=== PATIENT | female | born 1980 ===

== ENCOUNTER 2017-05-31 17:11 | Emergency (ER) | payer MEDICAID ==
[2017-05-31 18:28] LABS: SQUAMOUS EPITHIAL < 1 /hpf (0-5); URINE BACTERIA RARE (<OCC); URINE BILIRUBIN NEGATIVE (NEGATIVE); URINE BLOOD NEGATIVE (NEGATIVE); URINE CLARITY Clear (Clear); URINE COLOR Straw (YELLOW); URINE GLUCOSE (UA) NORMAL (Normal); URINE LEUKOCYTE ESTERASE NEG Leu/uL (Negative); URINE NITRATE NEGATIVE (NEGATIVE); URINE PROTEIN NEGATIVE (NEGATIVE); URINE UROBILINOGEN NORMAL mg/dL (0.2-1.0)
[2017-05-31 23:06] VITALS: BP 111/59; PULSE 82; RESP 20; TEMP 97
== END 2017-05-31 19:03 | disposition home or self-care (01) ==
LOC: C.EROB 17:11
DX: O26.893 Other specified pregnancy related conditions, third trimester (principal); Z3A.36 36 weeks gestation of pregnancy; R10.30 Lower abdominal pain, unspecified; M54.5 Low back pain

== ENCOUNTER 2017-06-05 23:27 | Inpatient (IN) | payer MEDICAID, OTHER ==
[2017-06-06] MEDS ORDERED: Lactated Ringer's 1,000 ML IV SCH
--- NOTE | 2017-06-06 00:37 | OBHP ---
Datetime: 06/05/2017 23:45 IP Adm Impression: Term, intrauterine IP Admit Plan: Admit to unit; Initiate labor protocol Admit Comment, IP Provider: Patient is a 36 year old at 37w 2d EDGAR 06/24/17 by 10w1d US prese nts to L+D for leakage of fluid that started at approximately 11pm. Patient states that she was leaki ng a moderate amount of clear fluid mixed with blood. Also states having occasional back pain. Endors es +FM, denies CTX, VB. Issues: Advanced Maternal Age - declined amnio OB Hx: 1. 2008 at 38 weeks, 5lbs 6oz, no complications 2. 2010 SAB at 12 weeks, D+C 3. Current ENGINE REPAIRER Hx: LMP unsure [facility] - 14/regular/3-4 days Denies hx of fibroids, ovarian cysts, STIs Denies hx of abnormal pap smears Allergies: NKDA Medications: PNV Medical Hx: Denies Surgical Hx: Kidney donor, D+C Social Hx: Denies alcohol, tobacco, drug use; lives with and son Family Hx: Father - CKD, cardiomyopathy; Mother - healthy PE: See above A/P: 36 year old at 37w2d presents with PROM -Will admit to unit -Category I tracing -CEFM and TOCO -Admission labs: CBC, CMP, TS, RPR, UA -Lactated Ringers 125cc/hr -GBS negative, no abx needed at this time -Anesthesia on consult prn -Anticipate vaginal delivery -Plan discussed with Dr Jg Seay DO PGY-1 Attending Note: patient seen with Resident. I agree with the above . FHR - Baseline A Provider: 135 Contraction Comments Provider: irregular Comments, ACOG Physical Exam: VSS Gen: AAOx3 Abd: Soft, gravid Ext: No clubbing, cyanosis, edema SSE: +pooling, +nitrazine SVE: 3/70/-2 IP Hx Assessment: The History has been Reviewed and is Current EGA AdmitDate IP: 37.3 Vital Signs Provider: Reviewed; Within Normal Limits IP Chief Complaint: Suspected ruptured membranes NICHD Variability Prov Fetus A: Moderate 6-25bpm NICHD Accel Fetus A IP Provider: [id number] FHR Category Provider Fetus A: Category I NICHD Decel Fetus A IP Provider: None Dilatation, Provider: 3 Effacement, Provider: 70 Station, Provider: -2
[2017-06-06 01:01] LABS: BASO # 0.1 K/uL (0.0-0.2); BASO % 0.8 % (0.0-2.0); EOS # 0.2 K/uL (0.0-0.7); EOS % 1.9 % (0.0-4.0); HEMOGLOBIN 13.7 g/dL (11.0-16.0); LYMPH # 3.2 K/uL (1.0-4.3); LYMPH % 31.6 % (20.0-40.0); MEAN CELL VOLUME 87.7 fL (81.0-99.0); MEAN CORPUSCULAR HEMOGLOBIN 29.9 pg (27.0-31.0); MEAN CORPUSCULAR HGB CONC 34.1 g/dL (33.0-37.0); MEAN PLATELET VOLUME 8.8 fL (7.2-11.7); MONO # 0.6 K/uL (0.0-0.8); MONO % 6.5 % (0.0-10.0); NEUT # 5.9 K/uL (1.8-7.0); NEUT % 59.2 % (50.0-75.0); NRBC % 0.1 % (0.0-2.0); RBC 4.58 Mil/uL (3.80-5.20); RED CELL DISTRIBUTION WIDTH 15.5 % (11.5-14.5)
[2017-06-06] MEDS ORDERED: Bupivacaine HCl 0.25% PF (10 ml) Inj ONE (01:08)
[2017-06-06] MEDS ORDERED: Fentanyl/Bupivacaine HCl 250 ML EPI ONE ×2 (01:08→02:29)
[2017-06-06 01:22] LABS: CALCIUM 9.1 mg/dl (8.6-10.4); GFR AFRICAN-AMERICAN > 60; GFR NON-AFRICAN AMERICAN > 60
[2017-06-06 01:25] LABS: ALBUMIN 3.7 g/dL (3.5-5.0); ALT/SGPT 10 U/L (9-52); AST/SGOT 41 U/L (14-36); BLOOD UREA NITROGEN 11 mg/dL (7-17)
[2017-06-06 01:37] LABS: URINE BILIRUBIN NEGATIVE (NEGATIVE); URINE BLOOD NEGATIVE (NEGATIVE); URINE CLARITY Clear (Clear); URINE COLOR YELLOW (YELLOW); URINE GLUCOSE (UA) NEGATIVE (Normal); URINE LEUKOCYTE ESTERASE NEGATIVE Leu/uL (Negative); URINE NITRATE NEGATIVE (NEGATIVE); URINE PROTEIN NEGATIVE (NEGATIVE); URINE UROBILINOGEN Normal mg/dL (0.2-1.0)
[2017-06-06] MEDS ORDERED: Oxytocin 30 UNIT 30 UNITS/500 ML BAG IV SCH (02:45)
[2017-06-06] MEDS ORDERED: Lidocaine 2% Inj (20ml) ONE (04:41)
[2017-06-06] MEDS ORDERED: Oxycodone/Acetaminophen 5/325 mg Tab PO PRN (05:25)
--- NOTE | 2017-06-06 05:41 | OBDS ---
DELIVERY PERSONNEL Delivery Doctor: Wily Gregorio MD Retail Banker: Karine Richardson RN Anesthesiologist: eddi MATERNAL INFORMATION Delivery Anesthesia: Epidural Medications in Delivery: pitocin 20 Estimated Blood Loss (ml): 300 Placenta Cultured: No Maternal Complications: None Provider Comments: Vaginal delivery of live male JOSUÉ position, weight 7lb 10oz, 's 9/9. Infant placed on mother's abdomen for skin to skin. Spontaneous delivery of placenta - grossly intac t; 3 vessel cord. Uterine exploration performed; uterus contracted and firm. Cervix, vagina perineum inspected - lac erations as above. Also, posterior vaginal wall noted for hyperemic discolored raised area approximat sonia 4cm x 3 cm, midline. Repair as above. Packing as above. Patient tolerated procedure well. Infant to well baby nursery instable condition LABOR SUMMARY EDC: 06/24/2017 00:00 No. Babies in Womb: 1 Attempted: No Labor Anesthesia: None LABOR INFORMATION Reason for Induction: Not Applicable Onset of Labor: 06/05/2017 18:00 Complete Dilatation: 06/06/2017 02:30 Oxytocin: Augmentation Group B Beta Strep: Negative Steroids Given: None Reason Steroids Not Administered: Not Applicable MEMBRANES Membranes Rupture Method: Spontaneous Rupture of Membranes: 06/05/2017 23:00 Length of Rupture (hrs): 5.37 Amniotic Fluid Color: Clear Amniotic Fluid Amount: Moderate Amniotic Fluid Odor: Normal STAGES OF LABOR Stage 1 hrs: 8 Stage 1 min: 30 Stage 2 hrs: 1 Stage 2 min: 52 Stage 3 hrs: 0 Stage 3 min: 15 Total Time in Labor hrs: 10 Total Time in Labor min: 37 VAGINAL DELIVERY Episiotomy: None Laceration Extension: Second Degree Laceration Type: Perineal; Vaginal Laceration Repair: Yes Laceration Repair Note: 2-0 chromic on left lateral vaginal wall laceration 2-0 and 3-0 chromic on perineal laceration Vaginal mucosa very friable. Decision made to pack vagina to facilitate hemostasis Patient tolerated procedure well. Initial Vag Sponge Count: 20 Final Vag Sponge Count: 20 Initial Vag Sharps Count: 4 Final Vag Sharps Count: 4 Sponge Count Correct: Yes Sharps Count Correct: Yes Count Comment: Correct BABY A INFORMATION Infant Delivery Date/Time: 06/06/2017 04:22 Method of Delivery: Vaginal Born in Route : No : N/A Forceps: N/A Vacuum Extraction: N/A Shoulder Dystocia : No SHOULDER DYSTOCIA BABY A Infant Delivery Date/Time: 06/06/2017 04:22 PRESENTATION/POSITION BABY A Presentation: Cephalic Cephalic Presentation: Vertex Vertex Position: Left Occipital Anterior Breech Presentation: N/A PLACENTA INFORMATION BABY A Placenta Delivery Time : 06/06/2017 04:37 Placenta Method of Delivery: Spontaneous Placenta Status: Delivered SCORES BABY A Heart Rate 1 min: >100 bpm Resp Effort 1 min: Good Cry Reflex Irritability 1 min: Cough or Sneeze or Pulls Away Muscle Tone 1 min: Active Motion Color 1 min: Body [place], Extremities Blue Resuscitation Effort 1 min: Tactile Stimulation SCORE 1 MIN: 9 Heart Rate 5 min: >100 bpm Resp Effort 5 min: Good Cry Reflex Irritability 5 min: Cough or Sneeze or Pulls Away Muscle Tone 5 min: Active Motion Color 5 min: Body [place], Extremities Blue SCORE 5 MIN: 9 INFANT INFORMATION BABY A Gestational Age at Delivery: 37.3 Gestational Status: Term Outcome : Liveborn Condition : Stable Infant Sex: Male IDENTIFICATION/MEDS BABY A ID Band Number: [id number] ID Band Location: Left Leg; Left Arm Sensor Applied: Yes Sensor Number: [id number] Sensor Location : Cord Clamp WEIGHT/LENGTH BABY A Birthweight (gms): 3460 Weight (lb): 7 Weight (oz): 10 Infant Length Inches: 20.00 Length cms: 50.8 CORD INFORMATION BABY A No. Cord Vessels: 3 Nuchal Cord : N/A Cord Blood Taken: Yes Suction: Mouth; Nose (Annotations: Data stored by [facility] on behalf of user) ASSESSMENT BABY A Complications: None Physical Findings at Delivery: Within Normal Limits Infant Respirations: Appears Normal [place]/ALS Called : No Infant Care By: DR EATON Transferred To: Remains with Mother
[2017-06-06] MEDS: Multiple Vitamins Tab PO SCH (14:03)
[2017-06-07 08:13] LABS: MEAN CELL VOLUME 87.1 fL (81.0-99.0); MEAN CORPUSCULAR HEMOGLOBIN 29.9 pg (27.0-31.0); MEAN CORPUSCULAR HGB CONC 34.3 g/dL (33.0-37.0); MEAN PLATELET VOLUME 8.5 fL (7.2-11.7); RBC 3.58 Mil/uL (3.80-5.20); RED CELL DISTRIBUTION WIDTH 15.9 % (11.5-14.5)
[2017-06-07 08:16] LABS: HEMOGLOBIN 10.7 g/dL (11.0-16.0); WHITE BLOOD COUNT 16.7 K/uL (4.8-10.8)
[2017-06-07] MEDS: Multiple Vitamins Tab PO SCH (09:17)
[2017-06-07] MEDS: Benzocaine/Menthol 20%-0.5% Topical Spray (60 ml) TOP PRN (09:18)
[2017-06-07] MEDS ORDERED: Influenza Vaccine 60 mcg/0.5 mL SYR (4YR UP) IM ONE (09:19)
--- NOTE | 2017-06-07 12:14 | OBPPN ---
Datetime: 06/07/2017 11:59 PP Pain Prov: Within normal limits PP Nausea Prov: Denies PP Flatus Prov: Yes PP Heart Prov: Normal PP Lungs Prov: Normal PP Abdomen/Uterus Prov: Normal PP Lochia Prov: Normal PP CVA Tenderness Prov: Normal PP Extremities Prov: Normal PP C/S Incision Prov: Not Applicable PP Progress Prov: Normal PP Impression Prov: Normal progression PP Plan Prov: Continue present management PP Progress Note Prov: S--patient denies any complaints.toelrating diet.ambulating and voiding witho ut difficulty.breast feeding. O-VSS Afebrile Abdomen gravid and nontender Extremities no calf tenderness A/P Ptaient s/p vaginal delivery ppd 1.vaginal packing removed.earlier.bleeding minimal now -continue to monitor closely Vital Signs Provider PP: Reviewed; Within Normal Limits
[2017-06-08 00:03] VITALS: RESP 20
[2017-06-08 07:49] VITALS: BP 119/81; PULSE 88; TEMP 98.8; O2SAT 98
[2017-06-08] MEDS: Benzocaine/Menthol 20%-0.5% Topical Spray (60 ml) TOP PRN (10:12)
[2017-06-08] MEDS: Multiple Vitamins Tab PO SCH (10:12)
--- NOTE | 2017-06-08 13:56 | OBPPN ---
Datetime: 06/08/2017 13:38 PP Pain Prov: Within normal limits PP Nausea Prov: Denies PP Flatus Prov: Yes PP BM Prov: Yes PP Breasts Prov: Normal PP Heart Prov: Normal PP Lungs Prov: Normal PP Abdomen/Uterus Prov: Normal PP Lochia Prov: Normal PP Vulva/Perineum Prov: Normal PP CVA Tenderness Prov: Normal PP Extremities Prov: Normal PP C/S Incision Prov: Normal PP Progress Prov: Normal PP Comments Phys Exam Prov: Abdomen: (+)BS. Soft. Non distended. Fundus firm, mobile, non tender, at umbilicus. Mild lochia rubra. Extremities: no calf tenderness. All other systems reviewed and are negative PP Impression Prov: Normal progression PP Plan Prov: Discharge PP Progress Note Prov: Patient seen and evaluated at 0900 hours. Concerned re: bilirubin results. E ncouraged to continue . Denies nausea, vomiting. Ambulating and voiding without difficulty. P.E.: as above. WD in NAD. Awake, alert, oriented to time, person and place. Pleasant and coopera tive. - PPD#1 H/H 10.7/31.1. Rh(+) Assessment: PPD#2, 36 y.o. P2012. S/P . Afebrile, vital signs stable. Post delivery anemia note d. Patient is asymptomatic; hemodynamically stable. Interesed in permanent sterilization; other opti ons were discussed including but not limited to IUD. Clinically stable. Plan: 1) Discharge home 2) See full discharge instructions Vital Signs Provider PP: Reviewed; Within Normal Limits
--- NOTE | 2017-06-08 13:58 | OBDCSUM ---
Datetime: 06/08/2017 09:30 Discharged to, Provider: Home Follow up at, Provider: MARTHA Disch Instr Activity: May be up to bathroom; May be up for meals; May Shower Disch Instr Diet: Regular Discharge Diet restrict Prov: none Discharge Diagnosis, Provider: Term Delivered Discharge Time: 06/08/2017 10:00 Follow up in weeks, Provider: 6 weeks Disch Referrals: None Contraception discussed, Prov: Yes Disch Activity Restrictions: No sexual activity; Nothing in vagina - Isabela, tampons, douche Discharge Diagnosis Prov Other: Advanced maternal age Anemia Contraception counseling Contraception after Delivery: Tubal Ligation Datetime: 05/31/2017 18:52 Discharge Diet restrict Prov: none Disch Activity Restrictions: No sexual activity; Nothing in vagina - Isabela, tampons, douche
== END 2017-06-08 12:40 | disposition home or self-care (01) | DRG 372 ==
LOC: C.EROB 23:27 → C.4D 23:55 → C.4M 06-06 06:18
PROVIDERS: ADMIT Obstetrics & Gynecology; ATTEND Obstetrics & Gynecology
PROC: 10E0XZZ Delivery of Products of Conception, External Approach (ICD-10-PCS; principal; 2017-06-06)
PROC: 0KQM0ZZ Repair Perineum Muscle, Open Approach (ICD-10-PCS; 2017-06-06)
DX: O42.02 Full-term premature rupture of membranes, onset of labor within 24 hours of rupture (principal); O70.1 Second degree perineal laceration during delivery; D64.9 Anemia, unspecified; O99.02 Anemia complicating childbirth; Z3A.37 37 weeks gestation of pregnancy; Z37.0 Single live birth

== ENCOUNTER 2017-10-29 19:33 | Emergency (ER) | payer SELFPAY ==
[2017-10-29 19:54] VITALS: TEMP 99.2
--- NOTE | 2017-10-29 20:08 | C.PDOC ---
History Of Present Illness 37 year old female presents to ED stating she does not feel well. She woke up feeling tired and had bone and generalized aches and pains. She states she felt she had fever. Additionally reports having 4 loose bowel movements, but denies abdominal pain. She states her was sick few days ago. Denies any headache, dizziness, vomiting, dysuria. Time Seen by Provider: 10/29/17 20:00 Chief Complaint (Nursing): Flu-like Symptoms History Per: Patient History/Exam Limitations: no limitations Onset/Duration Of Symptoms: Hrs Current Symptoms Are (Timing): Still Present Additional History Per: Patient Past Medical History Reviewed: Historical Data, Nursing Documentation, Vital Signs Vital Signs: Last Vital Signs Temp 99.2 F 10/29/17 21:40 Pulse 77 10/29/17 21:40 Resp 16 10/29/17 21:40 BP 98/66 L 10/29/17 21:40 Pulse Ox 98 10/29/17 21:58 - Medical History PMH: No Chronic Diseases Denies: Depression, Diabetes, HTN Surgical History: No Surg Hx - [facility] Procedures DELIVERY OF PRODUCTS OF CONCEPTION, EXTERNAL APPROACH (06/05/17) REPAIR PERINEUM MUSCLE, OPEN APPROACH (06/05/17) Family History: States: Unknown Family Hx - Social History Hx Alcohol Use: No Hx Substance Use: No - Immunization History Hx Tetanus Toxoid Vaccination: No Hx Influenza Vaccination: No Hx Pneumococcal Vaccination: No Review Of Systems Constitutional: Positive for: Fever Gastrointestinal: Positive for: Other (loose bowel movements ). Negative for: Vomiting, Abdominal Pain Genitourinary: Negative for: Dysuria Musculoskeletal: Positive for: Other (generalized body aches) Neurological: Negative for: Headache, Dizziness Physical Exam - Physical Exam Appears: Non-toxic, No Acute Distress Skin: Normal Color, Warm, Dry Head: Atraumatic, Normacephalic Eye(s): bilateral: Normal Inspection Ear(s): Bilateral: Normal Nose: Normal, No Discharge Oral Mucosa: Moist Throat: Erythema, No Exudate Neck: Supple Chest: Symmetrical, No Deformity, No Tenderness Cardiovascular: Rhythm Regular, No Murmur Respiratory: Normal Breath Sounds, No Rales, No Rhonchi, No Wheezing Gastrointestinal/Abdominal: Soft, No Tenderness, No Guarding, No Rebound Extremity: Normal ROM, Capillary Refill (less than 2 seconds ) Neurological/Psych: Oriented x3, Normal Speech, Normal Cognition ED Course And Treatment O2 Sat by Pulse Oximetry: 98 (on RA) Pulse Ox Interpretation: Normal Medical Decision Making Medical Decision Making: Impression: body aches Plan: * Influenza * Strep * Urinanalysis * Hcg Progress: Patient declined any medication UA shows LE and WBCs. Treat with Bactrim DS Strep and Flu negative. Disposition Counseled Patient/Family Regarding: Diagnosis, Need For Followup, Rx Given - Disposition Referrals: Aretha Sosa, ACNP-BC [Advanced Practice Nurse] - Disposition: HOME/ ROUTINE Disposition Time: 21:28 Condition: GOOD Additional Instructions: Take antibiotic twice daily and be sure to finish taking all of antibiotic. Drink plenty of fluids Prescriptions: Sulfamethoxazole/Trimethoprim [Bactrim DS 800 mg-160 mg] 1 tab PO BID #14 tab Instructions: Urinary Tract Infection, Adult (DC) Forms: [employer] (Yakut) - POA Present On Arrival: None - Clinical Impression Clinical Impression: UTI (urinary tract infection) - PA / PIANO MAKER / Resident Statement MD/DO has reviewed & agrees with the documentation as recorded. - Scribe Statement The provider has reviewed the documentation as recorded by the Scribe (Leah Lawler) All medical record entries made by the Scribe were at my direction and personally dictated by me. I have reviewed the chart and agree that the record accurately reflects my personal performance of the history, physical exam, medical decision making, and the department course for this patient. I have also personally directed, reviewed, and agree with the discharge instructions and disposition.
[2017-10-29 20:13] LABS: HCG,QUALITATIVE URINE NEGATIVE (NEGATIVE)
[2017-10-29 20:15] LABS: SQUAMOUS EPITHIAL 6 /hpf (0-5); URINE BILIRUBIN NEGATIVE (NEGATIVE); URINE CLARITY Clear (Clear); URINE COLOR Straw (YELLOW); URINE GLUCOSE (UA) NORMAL (Normal); URINE LEUKOCYTE ESTERASE 3+ Leu/uL (Negative); URINE PROTEIN NEGATIVE (NEGATIVE); URINE UROBILINOGEN NORMAL mg/dL (0.2-1.0)
[2017-10-29 20:40] LABS: URINE BLOOD TRACE (NEGATIVE)
[2017-10-29 21:26] LABS: INFLUENZA A B NEGATIVE FOR FLU A/B (NEGATIVE)
[2017-10-29] MEDS ORDERED: Tmp-Smz 800 mg-160 mg DS Tab PO STA (21:26)
[2017-10-29] MEDS ORDERED: Tmp-Smz 800 mg-160 mg DS Tab ONE (21:35)
[2017-10-29 21:55] VITALS: BP 98/66; PULSE 77; RESP 16
[2017-10-29 21:58] VITALS: O2SAT 98
== END 2017-10-29 21:45 | disposition home or self-care (01) ==
LOC: C.ER 19:33
DX: N39.0 Urinary tract infection, site not specified (principal)